=== PATIENT | male | born 1995 | race Caucasian/White ===

== ENCOUNTER 2017-09-09 20:38 | Emergency (ER) | payer MEDICAID ==
[~2017-09-09 20:38] MED LIST: ACET500T68 PO
--- NOTE | 2017-09-09 21:01 | ER Report ---
History and Physical Time Seen By MD: 20:59 Hx. of Stated Complaint: PT REPORTS THAT HE DEVELOPED CHEST PAIN ABOUT ONE HOUR AGO. PT REPORTS BEING SOB BUT STATES THAT THE SOB HAS RESOLVED. HPI/ROS CHIEF COMPLAINT: Cough, headache, chest pain HISTORY OF PRESENT ILLNESS: 22-year-old male presents ambulatory to the ER with 2 days of symptoms. He's been having a sore throat and a cough. Tonight. Patient notes some chest pain which concerned him. He also notes a dull headache. He denies photophobia or stiff neck. Patient denies exposure to ill contacts. Patient notes some nausea but no vomiting REVIEW OF SYSTEMS: Respiratory: As above Cardiovascular: As above Gastrointestinal: No vomiting, no abdominal pain. Musculoskeletal: No back pain. Allergies: Uncoded Allergies: ANTS (Adverse Reaction, Intermediate, SWELLING, 12/04/15) Home Meds Discontinued Reported Medications Acetaminophen (TYLENOL EXTRA STRENGTH) 500 Mg Tablet, 500 MG PO, TAB 12/04/15 Reviewed Nurses Notes: Yes Old Medical Records Reviewed: Yes Hx Smoking: No Hx Substance Use Disorder: No Constitutional Vital Sign - Last 24 Hours 09/09/17 09/09/17 09/09/17 09/09/17 20:44 20:58 21:00 21:15 Temp 99.0 Pulse 109 108 98 Resp 14 20 15 B/P (MAP) 117/77 143/89 (107) Pulse Ox 95 95 95 O2 Delivery Room Air 09/09/17 09/09/17 21:28 21:30 Pulse 86 Resp 17 B/P (MAP) 147/87 (107) Pulse Ox 94 Physical Exam General Appearance: The patient is alert, has no immediate need for airway protection and no current signs of toxicity. Vital signs stable, afebrile, pulse ox normal HEENT: Pupils equal and round no injection. TMs normal, oropharynx with mild redness, no exudate Respiratory: Chest is non tender, lungs are clear to auscultation. No wheezing or rails, positive. Chest wall tenderness Cardiac: regular rate and rhythm Gastrointestinal: Abdomen is soft and non tender, no masses, bowel sounds normal. Musculoskeletal: Neck: Neck is supple and non tender. No meningismus, no lymphadenopathy Extremities have full range of motion and are non tender. Skin: No rashes or lesions. DIFFERENTIAL DIAGNOSIS: After history and physical exam differential diagnosis was considered for chest pain including but not limited to myocardial ischemia, pericarditis pulmonary embolus, chest wall pain, pleural inflammation and pulmonary infectious causes. Medical Decision Making EKG/Imaging EKG Interpretation 12 lead EK Rhythm: normal sinus rhythm [place]: normal QRS: normal, incomplete right bundle branch block pattern ST segments: normal, no evidence of ischemia or dysrhythmia Imaging X-ray: Two-view chest x-ray was obtained. I viewed the images myself on the PACS system. My interpretation of the images is: No infiltrate, no effusion, normal mediastinum. The radiologist interpretation had no clinically significant variation from this interpretation. ED Course/Re-evaluation ED Course Patient was admitted to an examination room. H&P was done. The differential diagnoses was considered. On clinical examination. Patient has chest wall tenderness. His been having infectious symptoms. He likely has viral syndrome. He's had no high fever to suggest influenza. Patient's throat has no exudate. Patient's treated with Motrin, tramadol and Phenergan. A chest x- ray is unremarkable for infiltrate or pneumonia. Patient's advised to conservative treatment plan. Decision to Disposition Date: Sep 09, 2017 Decision to Disposition Time: 21:40 Depart Departure Latest Vital Signs Vital Signs Date Time Temp Pulse Resp B/P (MAP) Pulse Ox O2 Delivery O2 Flow Rate FiO2 09/09/17 21:30 86 17 94 09/09/17 21:28 147/87 (107) 09/09/17 20:44 99.0 Room Air Impression: Primary Impression: Viral syndrome Additional Impression: Chest pain Condition: Improved Disposition: HOME OR SELF-CARE New Scripts No Active Prescriptions or Reported Meds Patient Instructions: Chest Wall Pain (ED), Viral Syndrome (ED) Additional Instructions: Take ibuprofen 200 mg 3 tablets 3 times a day with food for 3-5 days Follow-up with your primary care if unimproved in 3-5 days Problem Qualifiers Additional Impression: Chest pain Chest pain type: chest pain on breathing Qualified Codes: R07.1 - Chest pain on breathing FILI WINTERS DO Sep 09, 2017 21:01
[2017-09-09] MEDS ORDERED: IBUPROFEN 600 MG TAB PO ONE (21:15)
[2017-09-09] MEDS ORDERED: PROMETHAZINE HCL 25 MG TAB PO ONE (21:15)
[2017-09-09] MEDS ORDERED: traMADol 50 MG TAB PO ONE (21:15)
[2017-09-09 21:28] VITALS: BP 147/87
--- NOTE | 2017-09-09 21:49 | RADIOLOGY IMAGING REPORT ---
FACILITY: [facility] PATIENT NAME: Jatin Aleman : 1995 MR: [id number] V: [id number] EXAM DATE: ORDERING PHYSICIAN: FILI WINTERS TECHNOLOGIST: Location: [facility] Patient: Jatin Aleman : 1995 Visit/Account:[id number] Date of Sevice: 09/09/2017 2 VIEWS CHEST INDICATION: Chest pain and dyspnea. COMPARISON: None available FINDINGS: Cardiomediastinal silhouette and pulmonary vessels within normal limits. There is no focal infiltrate or lobar consolidation. There is no pneumothorax or pleural effusion. No nodule. Upper abdomen is unremarkable. No acute bony abnormality. IMPRESSION: 1. No acute cardiopulmonary process. Report Dictated By: Ayush Rios at 09/09/2017 9:43 PM Report E-Signed By: Ayush Rios at 09/09/2017 9:44 PM WSN:[id number]
--- NOTE | 2017-09-09 22:42 | EKG ---
FACILITY: [facility] PATIENT NAME: ALICIA CAO : [id number] MR: [id number] V: [id number] EXAM DATE: ORDERING PHYSICIAN: FILI WINTERS TECHNOLOGIST: [place] Test Reason : CARDIAC Blood Pressure : / mmHG Vent. Rate : 099 BPM Atrial Rate : 099 BPM P-R Int : 158 ms QRS Dur : 094 ms QT Int : 350 ms P-R-T Axes : 049 088 049 degrees QTc Int : 449 ms Normal sinus rhythm Incomplete right bundle branch block Borderline ECG No previous ECGs available Confirmed by SURINDER VACA ([id number]) on 09/10/2017 2:18:10 PM Referred By: Confirmed By:SURINDER VACA
== END 2017-09-09 21:54 | disposition home or self-care (01) ==
LOC: ER 20:52
DX: R07.1 Chest pain on breathing (principal); I45.10 Unspecified right bundle-branch block
CPT/HCPCS: 71046; 93005; 99283; Q0169